=== PATIENT | male | born 1940 | race Caucasian/White ===

== ENCOUNTER 2016-10-11 14:00 | Inpatient (IN) | payer MEDICARE, OTHER ==
[~2016-10-11] VITALS: Ht 180.3 cm; Wt 85.0 kg
--- NOTE | ~2016-10-11 | OR ---
PATIENT'S NAME: GONSALO CHIU [facility] AGE: 75 Y [address] ROOM: [place] [address] LOCATION: [facility] ADMIT DATE: 10/17/2016 OR/Procedure Report DISCHARGE DATE: 10/18/2016 FAMILY PHYSICIAN: KASEY RUELAS PA-C ATTENDING PHYSICIAN: RAUL FIELD SURGEON: Raul Field MD LICENSED INSURANCE AGENT: Orlando James CST/PROFESSOR OF ENVIRONMENTAL STUDIES and Raul Martinez. DATE OF PROCEDURE: 10/17/2016 PREOPERATIVE DIAGNOSES: Left shoulder degenerative joint disease. 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 POSTOPERATIVE DIAGNOSES: Left shoulder degenerative joint disease. 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 PROCEDURE PERFORMED: Left shoulder reverse total shoulder arthroplasty. ANESTHESIA: General endotracheal anesthesia plus subcutaneous and periarticular local anesthesia (ropivacaine with epinephrine). DRAINS: None. SPECIMEN: None. COMPLICATIONS: None. IMPLANTS: [employer] Comprehensive Reverse Total Shoulder Arthroplasty System with mini (25 mm) glenoid base plate. A 36 mm diameter Glenosphere with +6 mm offset. A 4.75 mm glenoid base plate locking screws x4. A 6.5 mm central glenoid locking screw x1. Modular glenoid base plate adapter x1. Mini humeral stem (porous plasma coated, uncemented, 17 mm x 83 mm humeral component). Standard 44 mm humeral tray with +3 mm humeral polyethylene insert. DRAINS: None. SPECIMENS: None. COMPLICATIONS: None. INDICATION FOR SURGERY: Mr. Chiu is a 75-year-old male, who presents with PATIENT'S NAME: GONSALO CHIU [facility] AGE: 75 Y [address] ROOM: [place] [address] LOCATION: [facility] ADMIT DATE: 10/17/2016 OR/Procedure Report DISCHARGE DATE: 10/18/2016 FAMILY PHYSICIAN: KASEY RUELAS PA-C ATTENDING PHYSICIAN: RAUL FIELD severe left shoulder rotator cuff arthropathy. There was severe superior migration of the humeral head with erosion of the undersurface of the acromion and erosion of the superior half of the glenoid. On the axillary view, the glenoid has been eroded down to the base of the acromion. He has significant associated pseudoparalysis. Risks, benefits, limitations, and alternatives to this procedure have been thoroughly reviewed, and informed consent has been granted. We have specifically reviewed risks and implications of infection, neurovascular complications, stiffness, instability, blood transfusion risks, wear, loosening, and potential need for revision. Informed consent has been granted. DESCRIPTION OF PROCEDURE: The patient was placed in a modified beach chair position after administration of general endotracheal anesthesia and prophylactic antibiotics. His left shoulder and left upper extremity were prepped and draped with vigilant sterile technique. Examination under anesthesia demonstrated passive external rotation to 70 degrees. Passive forward elevation limited to 90 degrees. Significant crepitation with passive range of motion. No active skin lesions or masses. A standard deltopectoral incision was made. The cephalic vein was identified and was mobilized laterally with the deltoid. There was a thickened subdeltoid bursa. There was a large amount of fluid within the subdeltoid bursa. The subscapularis, supraspinatus, and infraspinatus tendons were absent. The axillary nerve was identified and was vigilantly protected throughout the entire case. Remnants of the subdeltoid bursa formed a thin residual anterior soft tissue sleeve. This was divided vertically and tagged with #1 Ethibond suture for later repair. The humeral head was readily dislocated anterosuperiorly. There was global full-thickness loss of articular cartilage. The humeral neck resection was performed with an oscillating saw. The humeral canal was reamed to a size 17. The size 17 tapered reamer tightly engaged the endosteal cortex of the proximal humerus. The humerus was broached to a size 17. The size 17 broach highly engaged the endosteal cortex of the proximal humerus. Circumferential glenoid exposure was obtained. There was a of the circumference of the glenoid. There was no remnant of the biceps tendon or the glenoid labrum. There was significant asymmetric wear of the glenoid (significant cephalad wear). This required asymmetric reaming of the glenoid in order to place the glenoid base plate in a slightly declined orientation. PATIENT'S NAME: KARLI CHIUMarietta Redd [facility] AGE: 75 Y [address] ROOM: [address] [address] LOCATION: [facility] ADMIT DATE: 10/17/2016 OR/Procedure Report DISCHARGE DATE: 10/18/2016 FAMILY PHYSICIAN: KASEY RUELAS PA-C ATTENDING PHYSICIAN: RAUL FIELD The glenoid was reamed at 10 degrees of inclination over a guidewire. The glenoid base plate obtained an excellent press-fit. Supplemental glenoid base plate fixation was achieved with 4 peripheral 4.75 mm locking screws (all of which obtained excellent purchase) and a single central 6.5 mm locking screw (which obtained decent purchase). Due to the asymmetric reaming, there was some residual prominent bone inferiorly, and this was debrided first with the glenoid base plate face in order to permit full seating of the Glenosphere. MD PEG GUEVARA/aby /[id number] d: 10/18/16 0740 t: 10/29/16 0053, OPERATIVE SUMMARY
--- NOTE | ~2016-10-11 | OR ---
PATIENT'S NAME: GONSALO BLACK [facility] AGE: 75 Y [address] ROOM: [address] [address] LOCATION: [facility] ADMIT DATE: 10/17/2016 OR/Procedure Report DISCHARGE DATE: PHYSICIAN: KASEY RUELAS PA-C ATTENDING PHYSICIAN: RAUL FIELD SURGEON: Raul Field MD OPHTHALMIC SURGICAL ASSISTANT: DATE OF PROCEDURE: 10/17/2016 ADDENDUM: The glenoid face was reamed over a guidewire at 10 degrees of inclination. This required significant asymmetric reaming (due to the significant erosion of subchondral bone from the cephalad aspect of the glenoid). The glenoid baseplate was impacted into position and obtained an excellent press fit. Supplemental fixation consisted of 4 peripheral 4.75 mm cortical locking screws (all of which obtained excellent purchase) and a single central 6.5 mm locking screw (which obtained decent purchase). Due to the asymmetric glenoid wear, a moderate amount of bone from the inferior half of the glenoid (peripheral to the glenoid base plate) needed to be debrided in order to permit full seating of the glenosphere. The glenosphere neck adaptor had been set in order to maximize eccentricity of the glenosphere relative to the glenosphere base plate. The glenosphere was impacted into position, and inferior aspect of the glenosphere was flush with the inferior margin of the . Circumferential digital palpation of the glenosphere confirmed solid seating of the glenosphere. I attempted to dislodge the glenosphere from the base plate with circumferential digital traction, and there was no motion at the interface. Attention was redirected at the proximal humerus. Trial reductions were performed. The above-specified construct provided excellent stability and range of motion. The axillary nerve was under no tension. The trial humeral component was removed. The final humeral stem was impacted into position and obtained excellent axial and rotational stability. The trunnion was cleansed and dried. The humeral tray and humeral polyethylene insert were assembled on the back table and impacted into position. A final reduction was performed after which there was no instability with internal or external rotation with the arm forward flexed to 90 degrees, with the arm at the side, or with the arm abducted to 90 degrees. Hemostasis was good throughout the entire case. The entire incision and joint space were thoroughly irrigated with bacteriostatic pulsatile saline lavage at this point as well as several times throughout the case. The remnants of the PATIENT'S NAME: GONSALO BLACK [facility] AGE: 75 Y [address] ROOM: [place] [address] LOCATION: [facility] ADMIT DATE: 10/17/2016 OR/Procedure Report DISCHARGE DATE: FAMILY PHYSICIAN: KASEY RUELAS PA-C ATTENDING PHYSICIAN: RAUL FIELD subdeltoid bursa were reapproximated anteriorly with #1 Ethibond. Subcutaneous tissues were reapproximated with simple deep interrupted 0 Vicryl suture. The skin was closed with superficial buried interrupted 2-0 Vicryl suture, followed by a running subcuticular 3-0 Monocryl suture, followed by Dermabond, followed by Steri-Strips with benzoin. The dressing consisted of an occlusive Mepilex dressing. A shoulder immobilizer was placed. The patient was extubated and transported to the post anesthesia care unit in stable, comfortable condition. There were no complications. MD PEG GUEVARA/aby /[id number] d: 10/18/1631 t: 10/18/16 220, OPERATIVE SUMMARY
[~2016-10-11 14:00] MED LIST: ALLOPURINOL100 MG PO; AMOXICILLIN500 MG PO; COLACE100 MG PO; COLCRYS0.6 MG PO; COREG6.25 MG PO; DILAUDID 2MG(HYD2 MG PO; ELIQUIS5 MG PO; FLOMAX0.4 MG PO; MILK OF MA400 MG/5 M PO; MIRALAX17 GM PO; PRINIVIL OR ZES10 MG PO; RYTHMOL150 MG PO; TYLENOL EXTRA500 MG PO; VALIUM5 MG PO
[2016-10-11] MEDS ORDERED: THERA-VITE W/ B1 TAB PO (14:03)
[2016-10-11] MEDS ORDERED: PROBIOTIC1 EAC1 PO (14:04)
[2016-10-11] MEDS ORDERED: [UNRECOGNIZED DRUG - OTHER] PO (14:05)
--- NOTE | 2016-10-18 04:35 | NUR ---
Patient alert and oriented x3, very pleasant and cooprative, csm with in normal limits, dressing clean dry and intact to left shoulder, ice in place to shoulder, pain has been well controled and has rested most of the night, ambulates well one assist to the bathroom, shoulder sling/immobilizer in place to left arm.
--- NOTE | 2016-10-18 09:15 | NUR ---
Introduced self/role to patient and his son. Patient will be going home with his son following discharge. They have all the equipment they feel they will need. He has had a hip and knee done previously. They plan to discharge today. Denied any barriers to discharge or at home.
[2016-10-18] MEDS ORDERED: DILAUDID 2MG(HYD2 MG PO (09:42)
--- NOTE | 2016-10-18 17:47 | NUR ---
Pt and family comfortable to go home. Pt and family verbalized understanding of medications, pain control, what to watch for. Pt denies pain. Pt has immobilizer on. Valuables returned to patient. CSM intact. Dressing C/D/I. Pt wheeled to front door by staff into steffi's car.
== END 2016-10-18 17:15 | disposition disaster alternative care site (69) | DRG 483 ==
LOC: G3N 10-17 12:53
PROVIDERS: ADMIT Orthopaedic Surgery
PROC: 0RRK00Z Replacement of Left Shoulder Joint with Reverse Ball and Socket Synthetic Substitute, Open Approach (ICD-10-PCS; principal; 2016-10-17)
DX: M19.012 Primary osteoarthritis, left shoulder (principal); I50.9 Heart failure, unspecified; I48.91 Unspecified atrial fibrillation; I13.0 Hypertensive heart and chronic kidney disease with heart failure and stage 1 through stage 4 chronic kidney disease, or unspecified chronic kidney disease; N40.0 Benign prostatic hyperplasia without lower urinary tract symptoms; E78.5 Hyperlipidemia, unspecified; K21.9 Gastro-esophageal reflux disease without esophagitis; I45.10 Unspecified right bundle-branch block; M19.011 Primary osteoarthritis, right shoulder; M17.12 Unilateral primary osteoarthritis, left knee; D64.9 Anemia, unspecified; M75.102 Unspecified rotator cuff tear or rupture of left shoulder, not specified as traumatic; N18.9 Chronic kidney disease, unspecified; M10.9 Gout, unspecified; F32.9 Major depressive disorder, single episode, unspecified; Z87.891 Personal history of nicotine dependence; Z86.718 Personal history of other venous thrombosis and embolism; Z96.651 Presence of right artificial knee joint
CPT/HCPCS: C1713; C1776; J0690; J1885; J2001; J2795; J7120; P9045